=== PATIENT | male | born 1975 | race Caucasian/White ===

== ENCOUNTER 2024-10-17 14:25 | Emergency (ER) | payer BC, OTHER ==
[~2024-10-17] VITALS: Ht 182.9 cm; Wt 72.6 kg
[~2024-10-17 14:25] MED LIST: AMOXICILLIN500 MG PO; KETOROLAC TROME10 MG PO
[2024-10-17 14:38] VITALS: TEMP 98.4
[2024-10-17] MEDS ORDERED: SODIUM CHLORIDE FLUSH 10 ML SYR IV PRN (15:15)
[2024-10-17 15:20] LABS: BASOPHILS % 0.2 % (0.0-1.0); EOSINOPHILS # (AUTO) 0.2 (0.0-0.4); EOSINOPHILS % 1.9 % (0.0-6.0); HEMOGLOBIN 13.6 g/dL (14.0-18.0); LYMPHOCYTES # (AUTO) 1.5 (1.0-3.2); LYMPHOCYTES % 16.3 % (18.0-39.1); MEAN CORPUSCULAR HEMOGLOBIN 29.4 pg (28-32); MEAN CORPUSCULAR VOLUME 86.4 fL (81-99); MONOCYTES # (AUTO) 0.7 (0.2-0.8); MONOCYTES % 7.5 % (4.4-11.3); NEUTROPHILS # (AUTO) 6.7 (2.1-6.9); NEUTROPHILS % 73.8 % (38.7-80.0); PLATELET COUNT 228 x10e3/uL (140-360); RED BLOOD COUNT 4.63 x10e6/uL (4.3-5.7); RED CELL DISTRIBUTION WIDTH 13.1 % (11.7-14.4); WHITE BLOOD COUNT 9.06 x10e3/uL (4.8-10.8)
[2024-10-17 15:32] LABS: ALBUMIN 4.6 g/dL (3.5-5.0); ALBUMIN/GLOBULIN RATIO 1.4 (0.8-2.0); ANION GAP 16.8 mmol/L (8-16); BILIRUBIN,TOTAL 0.7 mg/dL (0.2-1.2); CALCIUM 9.7 mg/dL (8.4-10.2); CREATININE, SERUM 1.24 mg/dL (0.72-1.25); POTASSIUM 3.8 mmol/L (3.5-5.1)
[2024-10-17 15:38] LABS: TROPONIN I 0.014 ng/mL (0-0.300)
[2024-10-17] MEDS ORDERED: IOPAMIDOL 370 MG/ML 100 ML INFUS..BTL INJ ONE (15:46)
[2024-10-17] MEDS ORDERED: SODIUM CHLORIDE 0.9% 100 ML ONE (15:46)
[2024-10-17] MEDS: FAMOTIDINE 20 MG/2 ML VIAL IV STA (15:57)
[2024-10-17] MEDS: IBUPROFEN 400 MG TAB PO ONE (16:19)
[2024-10-17 16:25] VITALS: PULSE 59; RESP 16; O2SAT 99
== END 2024-10-17 18:28 | disposition home or self-care (01) ==
LOC: ER 14:56
DX: R10.13 Epigastric pain (principal); K21.9 Gastro-esophageal reflux disease without esophagitis; M54.9 Dorsalgia, unspecified; R94.31 Abnormal electrocardiogram [ECG] [EKG]
CPT/HCPCS: 36415; 71275; 74174; 80053; 83690; 84484; 85025; 93005; 94760; 99284; J7050; Q9967